=== PATIENT | female | born 1955 | race Caucasian/White ===

== ENCOUNTER 2021-04-22 17:40 | Emergency (ER) | payer MEDICAID ==
[~2021-04-22] VITALS: Ht 162.6 cm; Wt 61.0 kg
[2021-04-22] MEDS ORDERED: KETOROLAC 60MG/2ML VIAL IM ONE (18:30)
[2021-04-22 18:50] LABS: BASOPHILS % 0.8 % (0.0-2.0); EOSINOPHILS % 1.1 % (0.0-5.0); HEMATOCRIT. 39.1 % (36.0-48.0); HEMOGLOBIN. 13.1 g/dL (12.0-16.0); LYMPHOCYTES % 31.2 % (20.0-50.0); MEAN CORPUSCULAR HEMOGLOBIN 28.9 pg (28.0-32.0); MEAN CORPUSCULAR VOLUME 86.6 fL (81.0-99.0); MEAN PLATELET VOLUME 8.5 fl (7.4-10.4); MONOCYTES % 8.2 % (2.0-8.0); NEUTROPHILS % 58.7 % (40.0-76.0); PLATELET 210 x1000/uL (130-400); RED BLOOD CELL COUNT 4.52 mill/uL (4.2-5.4); RED CELL DISTRIBUTION WIDTH 13.7 % (11.6-14.6)
[2021-04-22 18:58] LABS: CHLORIDE 108 mEq/L (98-107)
[2021-04-22 19:01] LABS: CLARITY URINE CLEAR (CLEAR); COLOR URINE YELLOW (YELLOW); KETONES URINE NEGATIVE (NEGATIVE); LEUKOCYTE ESTERASE URINE 1+ (NEGATIVE); NITRITE URINE NEGATIVE (NEGATIVE); OCCULT BLOOD URINE 1+ (NEGATIVE); PROTEIN URINE NEGATIVE (NEGATIVE); SPECIFIC GRAVITY URINE 1.016 (1.005-1.030); UROBILINOGEN URINE 0.2 E.U./dL (0.2-1.0)
[2021-04-22] MEDS ORDERED: IBUP-2028 MT (20:23)
[2021-04-22] MEDS ORDERED: CIPR500T5 MT (20:23)
[2021-04-22 20:53] VITALS: BP 128/74
== END 2021-04-22 20:56 | disposition home or self-care (01) ==
LOC: ER 17:40
DX: N10 Acute pyelonephritis (principal); I10 Essential (primary) hypertension
CPT/HCPCS: 36415; 72100; 80053; 81003; 83690; 85025; 96372; 99284; J1885

== ENCOUNTER 2023-02-01 22:33 | Emergency (ER) | payer MEDICARE, OTHER ==
[~2023-02-01] VITALS: Ht 154.9 cm; Wt 63.2 kg
[~2023-02-01 22:33] MED LIST: CIPR500T5 MT; IBUP-2028 MT
[2023-02-01 22:49] VITALS: O2SAT 97
[2023-02-02] MEDS ORDERED: IBUPROFEN 800MG TABLET PO ONE (00:30)
[2023-02-02] MEDS ORDERED: ACETAMINOPHEN 325MG TABLET PO ONE (00:30)
[2023-02-02] MEDS ORDERED: IBUP-2030 MT (00:36)
[2023-02-02] MEDS ORDERED: ACET-2708 MT (00:36)
[2023-02-02] MEDS: IBUPROFEN 400MG TABLET PO NR ×2 (01:30→01:35)
[2023-02-02 01:35] VITALS: BP 163/73; PULSE 77; RESP 20; TEMP 98.9
== END 2023-02-02 01:37 | disposition home or self-care (01) ==
LOC: ER 22:33
DX: J02.9 Acute pharyngitis, unspecified (principal); I10 Essential (primary) hypertension; Z20.822 Contact with and (suspected) exposure to COVID-19
CPT/HCPCS: 99283; 87426; 87804 ×2; C9803

== ENCOUNTER 2024-02-25 12:45 | Emergency (ER) | payer SELFPAY ==
[~2024-02-25] VITALS: Ht 160 cm; Wt 54.4 kg
[~2024-02-25 12:45] MED LIST changes: +ACET-2708 MT; +IBUP-2030 MT
[2024-02-25 12:50] VITALS: BP 116/65; PULSE 78; RESP 16; TEMP 98.4; O2SAT 98
[2024-02-25] MEDS: ACETAMINOPHEN 325MG TABLET PO ONE (18:22)
[2024-02-25] MEDS ORDERED: TETR15DR17 OP (18:26)
== END 2024-02-25 18:26 | disposition home or self-care (01) ==
LOC: ER 12:45
DX: H11.32 Conjunctival hemorrhage, left eye (principal); R51.9 Headache, unspecified; E11.9 Type 2 diabetes mellitus without complications; E78.00 Pure hypercholesterolemia, unspecified; I10 Essential (primary) hypertension
CPT/HCPCS: 99284